=== PATIENT | male | born 1950 | race Caucasian/White ===

== ENCOUNTER 2023-10-15 09:32 | Emergency (ER) | payer MEDICAID ==
[~2023-10-15] VITALS: Ht 162.6 cm; Wt 60.0 kg
[2023-10-15 09:39] VITALS: BP 174/100; PULSE 60; RESP 16; TEMP 98.2; O2SAT 98
[2023-10-15] MEDS: ACETAMINOPHEN 325MG TABLET PO ONE (11:00)
[2023-10-15] MEDS ORDERED: CEPHALEXIN 250MG CAPSULE PO ONE (13:15)
[2023-10-15] MEDS ORDERED: KETOROLAC 60MG/2ML VIAL IM ONE (13:15)
[2023-10-15] MEDS ORDERED: TETANUS, DIPHTHERIA, PERTUSSIS VAC/PF 0.5ML (>10YR OLD) IM ONE (13:15)
[2023-10-15] MEDS ORDERED: CEPH500C2 MT (15:41)
[2023-10-15] MEDS ORDERED: IBUP-1523 MT (15:41)
[2023-10-15] MEDS ORDERED: TOPUD MT (15:41)
== END 2023-10-15 15:10 | disposition left against medical advice (07) ==
LOC: ER 09:32
DX: S02.85XA Fracture of orbit, unspecified, initial encounter for closed fracture (principal); I10 Essential (primary) hypertension; Y04.0XXA Assault by unarmed brawl or fight, initial encounter; Y93.89 Activity, other specified; Y92.89 Other specified places as the place of occurrence of the external cause; Y99.8 Other external cause status
CPT/HCPCS: 70450; 70486; 99284; Z7610

== ENCOUNTER 2024-03-18 10:47 | Emergency (ER) | payer MEDICAID ==
[~2024-03-18] VITALS: Ht 170.2 cm; Wt 70.0 kg
[~2024-03-18 10:47] MED LIST: CEPH500C2 MT; IBUP-1523 MT; TOPUD MT
[2024-03-18 10:49] VITALS: BP 161/94; PULSE 70; RESP 18; O2SAT 99
[2024-03-18] MEDS: LIDOCAINE HCL/PF 1% 10 MG/ML 5ML VIAL INFIL ONE (11:45)
[2024-03-18 12:00] VITALS: TEMP 98.7
[2024-03-18] MEDS: ACETAMINOPHEN 325MG TABLET PO ONE (12:00)
[2024-03-18] MEDS: BACITRACIN ZINC OINT UDPKT TOP ONE (12:00)
[2024-03-18] MEDS: TETANUS, DIPHTHERIA, PERTUSSIS VAC/PF 0.5ML (>10YR OLD) IM ONE (12:40)
== END 2024-03-18 12:23 | disposition home or self-care (01) ==
LOC: ER 10:47
DX: S91.331A Puncture wound without foreign body, right foot, initial encounter (principal); I10 Essential (primary) hypertension; X58.XXXA Exposure to other specified factors, initial encounter; Y93.89 Activity, other specified; Y92.89 Other specified places as the place of occurrence of the external cause; Y99.8 Other external cause status
CPT/HCPCS: 73630; 90715; 90471; 99283; J3490; Z7610 ×3

== ENCOUNTER 2024-04-29 11:20 | Emergency (ER) | payer MEDICAID, OTHER ==
[~2024-04-29] VITALS: Ht 172.7 cm; Wt 68.0 kg
[2024-04-29 11:21] VITALS: O2SAT 97
[2024-04-29 13:19] LABS: BASOPHILS % 0.1 % (0.0-2.0); EOSINOPHILS % 0.3 % (0.0-5.0); HEMATOCRIT. 38.3 % (42.0-52.0); HEMOGLOBIN. 12.9 g/dL (14.0-18.0); LYMPHOCYTES % 9.4 % (20.0-50.0); MEAN CORPUSCULAR HEMOGLOBIN 31.6 pg (28.0-32.0); MEAN CORPUSCULAR HGB CONC 33.7 g/dL (31.0-37.0); MEAN CORPUSCULAR VOLUME 93.7 fL (80.0-94.0); MEAN PLATELET VOLUME 8.7 fl (7.4-10.4); MONOCYTES % 6.6 % (2.0-8.0); NEUTROPHILS % 83.6 % (40.0-76.0); PLATELET 234 x1000/uL (130-400); RED BLOOD CELL COUNT 4.09 mill/uL (4.7-6.1); RED CELL DISTRIBUTION WIDTH 13.4 % (11.6-14.6); WHITE BLOOD COUNT 10.6 x1000/uL (4.5-11.0)
[2024-04-29 13:29] LABS: CHLORIDE 100 mEq/L (98-107); SODIUM 136 mEq/L (136-145)
[2024-04-29 13:30] LABS: CARBON DIOXIDE 25 mEq/L (21-32)
[2024-04-29 13:31] LABS: CALCIUM 9.9 mg/dL (8.7-10.4)
[2024-04-29 13:35] LABS: CREATININE 1.4 mg/dL (0.6-1.3); GLUCOSE 117 mg/dL (70-105)
[2024-04-29 13:36] LABS: UREA NITROGEN BLOOD 30 mg/dL (9-23)
[2024-04-29 13:37] LABS: ALANINE AMINOTRANSFERASE 39 IU/L (10-49); ALBUMIN 4.6 g/dL (3.2-4.8); ASPARTATE AMINOTRANSFERASE 36 IU/L (<34)
[2024-04-29 13:38] LABS: BILIRUBIN TOTAL 0.8 mg/dL (0.1-1.0); PROTEIN TOTAL 7.9 g/dL (6.0-8.3)
[2024-04-29 14:42] VITALS: BP 146/88; PULSE 86; RESP 16
[2024-04-29] MEDS: IBUPROFEN 600MG TABLET PO ONE (14:42)
[2024-04-29 14:43] VITALS: TEMP 98.2
[2024-04-29] MEDS: ACETAMINOPHEN 650MG/20.3ML UDC PO ONE (14:43)
== END 2024-04-29 14:45 | disposition home or self-care (01) ==
LOC: ER 11:20
DX: B34.9 Viral infection, unspecified (principal); I10 Essential (primary) hypertension
CPT/HCPCS: 36415; 80053; 85025; 99283